=== PATIENT | male | born 1970 | race Hispanic/Latino ===

== ENCOUNTER 2020-10-22 12:11 | Emergency (ER) | payer OTHER, SELFPAY ==
--- NOTE | 2020-10-22 12:59 | RAD ---
3 VIEWS RIGHT WRIST: Date: 10/22/2020 HISTORY: Fall with right arm pain. FINDINGS: Three views of the right wrist show no evidence of acute fracture or dislocation. Mild dorsal soft ti ssue swelling is seen. No degenerative changes are present. IMPRESSION: No evidence of acute osseous abnormality. POS: [facility]
[2020-10-22] MEDS ORDERED: Ketorolac Tromethamine 30 MG/ML VIAL ONE (13:10)
[2020-10-22] MEDS ORDERED: Lidocaine 1% (PF) 30 ML VIAL ONE (13:10)
== END 2020-10-22 14:02 | disposition home or self-care (01) ==
LOC: ERS 12:11
DX: M25.531 Pain in right wrist (principal); N40.0 Benign prostatic hyperplasia without lower urinary tract symptoms; M21.931 Unspecified acquired deformity of right forearm; Z79.899 Other long term (current) drug therapy; W00.0XXA Fall on same level due to ice and snow, initial encounter
CPT/HCPCS: 29125; 96372; J1885; J2001